=== PATIENT | male | born 1940 | race Caucasian/White ===

== ENCOUNTER 2019-04-17 07:37 | Day surgery (SDC) | payer MEDICARE, BC ==
[2019-04-16 12:45] LABS: BASOPHILS % (AUTO) 0.6 % (0-1); EOSINOPHILS % (AUTO) 0.4 % (0-6); HEMATOCRIT 40.9 % (42.0-52.0); HEMOGLOBIN 14.1 g/dl (14.0-17.9); LYMPHOCYTES # (AUTO) 1.4 X10'3 (1.1-4.8); LYMPHOCYTES % (AUTO) 17.4 % (21-51); MEAN CORPUSCULAR HEMOGLOBIN 32.8 PG (27.0-31.0); MEAN CORPUSCULAR HGB CONC 34.5 g/dL (33.0-36.5); MEAN CORPUSCULAR VOLUME 95.3 FL (78-98); MEAN PLATELET VOLUME 8.9 FL (7.4-10.4); MONOCYTES # (AUTO) 0.8 X10'3 (0-0.9); MONOCYTES % (AUTO) 9.7 % (2-12); NEUTROPHILS # (AUTO) 5.6 X10'3 (1.8-7.7); NEUTROPHILS % (AUTO) 71.9 % (42-75); PLATELET COUNT 173 X10'3 (140-440); RED BLOOD COUNT 4.29 X10'6 (4.70-6.10); RED CELL DISTRIBUTION WIDTH 14.3 % (11.5-14.5); WHITE BLOOD COUNT 7.8 X10'3 (4.5-11.0)
[2019-04-16 12:54] LABS: ALBUMIN 3.5 G/DL (3.4-5.0); ANION GAP 10 (8-16); BLOOD UREA NITROGEN 20 MG/DL (7-18); BUN/CREATININE RATIO 21.1 (5.4-32.0); CHLORIDE 102 MMOL/L (99-107); CREATININE 0.95 MG/DL (0.60-1.10); GLUCOSE 134 MG/DL (70-104); POTASSIUM 4.5 MMOL/L (3.5-5.1); SODIUM 139 MMOL/L (135-145); TOTAL CARBON DIOXIDE 26.7 MMOL/L (24-32); eGFR 77 ML/MIN
[2019-04-17] VITALS (19 sets, daily range): BP systolic 90–121; BP diastolic 50–69
[~2019-04-17] VITALS: Ht 182.9 cm; Wt 111.9 kg
[2019-04-17] MEDS ORDERED: amiodarone in dextrose, iso-osm 150mg/100ml bag IV ONE (08:10)
[2019-04-17] MEDS ORDERED: diphenhydrAMINE 25mg capsule PO ONE (08:10)
[2019-04-17] MEDS ORDERED: MIDAZolam 5mg/ml 2ml vial IV ONE (08:10)
[2019-04-17] MEDS ORDERED: atropine 0.1mg/ml 10ml syringe IV ONE (08:10)
[2019-04-17] MEDS ORDERED: LORazepam 0.5 MG tablet PO ONE (08:10)
[2019-04-17] MEDS ORDERED: morphine 10mg/ml inj. IV ONE (08:10)
[2019-04-17] MEDS ORDERED: normal saline 1000ml 1,000 ML IV SCH (08:10)
[2019-04-17] MEDS ORDERED: INSU100V9 SQ (08:18)
[2019-04-17] MEDS ORDERED: PRAZ5CAP2 PO (08:18)
[2019-04-17] MEDS ORDERED: ATOR40TA PO (08:18)
[2019-04-17] MEDS ORDERED: SITA1TAB6 PO (08:18)
[2019-04-17] MEDS ORDERED: FURO-150 PO (08:18)
[2019-04-17] MEDS ORDERED: HYDR25TA4 PO (08:18)
[2019-04-17] MEDS ORDERED: POTA20TA10 PO (08:18)
[2019-04-17] MEDS ORDERED: AMLO1CAP10 PO (08:18)
[2019-04-17] MEDS ORDERED: FINA5TAB11 PO (08:18)
[2019-04-17] MEDS ORDERED: APIX5TAB3 PO (08:18)
[2019-04-17] MEDS ORDERED: FLU VACC QS2019-20 36MOS UP/PF 60 MCG/0.5 ML SYRINGE IMVAC ONE (10:10)
== END 2019-04-17 12:30 | disposition home or self-care (01) ==
LOC: SSTAY O 07:37
PROVIDERS: ATTEND Internal Medicine Cardiovascular Disease
DX: I48.19 Other persistent atrial fibrillation (principal); I10 Essential (primary) hypertension; E78.5 Hyperlipidemia, unspecified; Z23 Encounter for immunization; G47.33 Obstructive sleep apnea (adult) (pediatric); E11.9 Type 2 diabetes mellitus without complications; Z79.899 Other long term (current) drug therapy; Z79.4 Long term (current) use of insulin; Z82.49 Family history of ischemic heart disease and other diseases of the circulatory system
CPT/HCPCS: 36415; 80048; 82948; 85025; 85610; 92960; 93005; 93312; G0008; J0282; J0461; J2250; J2270; J7030; Q0163; Q2037

== ENCOUNTER 2021-06-16 15:41 | Inpatient (IN) | payer MEDICARE, BC ==
[~2021-06-16] VITALS: Ht 182.9 cm; Wt 100.3 kg
[~2021-06-16 15:41] MED LIST: AMLO1CAP10 PO; APIX5TAB3 PO; ATOR40TA PO; FINA5TAB11 PO; FURO-150 PO; HYDR25TA4 PO; INSU100V9 SQ; POTA-197 PO; PRAZ5CAP2 PO; SITA1TAB6 PO
[2021-06-16 16:22] LABS: BASOPHILS # (AUTO) 0.1 X10'3 (0-0.2); BASOPHILS % (AUTO) 0.8 % (0-1); EOSINOPHILS # (AUTO) 0.1 X10'3 (0-0.9); EOSINOPHILS % (AUTO) 0.6 % (0-6); HEMATOCRIT 40.4 % (42.0-52.0); HEMOGLOBIN 13.4 g/dl (14.0-17.9); LYMPHOCYTES # (AUTO) 1.5 X10'3 (1.1-4.8); LYMPHOCYTES % (AUTO) 16.5 % (21-51); MEAN CORPUSCULAR HEMOGLOBIN 30.9 PG (27.0-31.0); MEAN CORPUSCULAR HGB CONC 33.2 g/dL (33.0-36.5); MEAN CORPUSCULAR VOLUME 92.9 FL (78-98); MEAN PLATELET VOLUME 7.8 FL (7.4-10.4); MONOCYTES # (AUTO) 0.7 X10'3 (0-0.9); MONOCYTES % (AUTO) 7.5 % (2-12); NEUTROPHILS # (AUTO) 6.9 X10'3 (1.8-7.7); NEUTROPHILS % (AUTO) 74.6 % (42-75); PLATELET COUNT 322 X10'3 (140-440); RED BLOOD COUNT 4.35 X10'6 (4.70-6.10); RED CELL DISTRIBUTION WIDTH 14.5 % (11.5-14.5); WHITE BLOOD COUNT 9.3 X10'3 (4.5-11.0)
--- NOTE | 2021-06-16 16:35 | NUR ---
Pt placed in room 9.
[2021-06-16 16:36] LABS: ALANINE AMINOTRANSFERASE 26 U/L (12-78); ALBUMIN 3.7 G/DL (3.4-5.0); ALBUMIN/GLOBULIN RATIO 0.7 (1.1-1.5); ALKALINE PHOSPHATASE 114 IU/L (46-116); ANION GAP 13 (8-16); ASPARTATE AMINO TRANSFERASE 18 U/L (10-37); BILIRUBIN,TOTAL 0.4 MG/DL (0.1-1.0); BLOOD UREA NITROGEN 22 MG/DL (7-18); BUN/CREATININE RATIO 18.3 (5.4-32.0); CALCIUM 10.4 MG/DL (8.5-10.1); CHLORIDE 100 MMOL/L (99-107); GLUCOSE 175 MG/DL (70-104); POTASSIUM 4.8 MMOL/L (3.5-5.1); SODIUM 138 MMOL/L (135-145); TOTAL CARBON DIOXIDE 25.3 MMOL/L (24-32); TOTAL PROTEIN 8.8 G/DL (6.4-8.2); eGFR 59 ML/MIN
--- NOTE | 2021-06-16 16:40 | NUR ---
Pt has a 2cm x 3 cm ulcer on lateral R foot at the base of of 5th toe.
--- NOTE | 2021-06-16 16:45 | NUR ---
To CT/MRI.
[2021-06-16] MEDS ORDERED: magnesium 4gm in 100ml NS 100 ML IV PRN (17:00)
[2021-06-16] MEDS ORDERED: potassium Cl 20 mEq SR tablet PO PRN ×2 (17:00)
[2021-06-16] MEDS ORDERED: HYDROmorphone/PF 0.2 MG/ML SYRINGE IV PRN (17:00)
[2021-06-16] MEDS ORDERED: HYDROmorphone inj. 0.5 MG/0.5 ML DISP.SYRIN IV PRN (17:00)
[2021-06-16] MEDS ORDERED: ondansetron/PF 4mg/2ml inj IV PRN (17:00)
[2021-06-16] MEDS ORDERED: potassium CL 10mEq/100ml bag 100 ML IV PRN (17:00)
[2021-06-16] MEDS ORDERED: acetaminophen 325mg tablet PO PRN ×2 (17:00)
[2021-06-16] MEDS ORDERED: magnesium 2GM in 50ml NS 50 ML IV PRN (17:00)
[2021-06-16] MEDS ORDERED: magnesium hydroxide 30ml (MOM) UD suspension PO PRN (17:00)
[2021-06-16] MEDS ORDERED: mag hydrox/Alum hydrox/simeth 30ml oral suspension PO PRN (17:00)
[2021-06-16] MEDS ORDERED: HYDROcodone/acetaminophen 5mg/325mg tablet PO PRN (17:00)
[2021-06-16] MEDS ORDERED: magnesium Cl slow-release 64mg tablet PO PRN (17:00)
[2021-06-16] MEDS ORDERED: ondansetron 4mg rapidly disintigrating tab PO PRN (17:00)
[2021-06-16] MEDS ORDERED: bisacodyl 10mg suppository rectal RC PRN (17:00)
[2021-06-16] MEDS ORDERED: dextrose 50%-water 50ml dispensing syringe IV PRN ×2 (17:45)
[2021-06-16] MEDS ORDERED: insulin Lispro (HumaLOG) vial - multi-dose SQ SCH (17:45)
[2021-06-16] MEDS ORDERED: MESSAGE TO PHARMACY PO ONE (17:45)
[2021-06-16] MEDS ORDERED: glucagon, human recombinant 1mg kit SUBCUT PRN (17:45)
[2021-06-16] MEDS ORDERED: dextrose ORAL solution 15 GM/59 ML bottle PO PRN ×2 (17:45)
[2021-06-16 18:13] LABS: HEMOGLOBIN A1C 6.3 % (4.5-6.2)
[2021-06-16] MEDS ORDERED: GADOTERATE MEGLUMINE 7.5 MMOL/15 ML VIAL IV ONE (18:25)
[2021-06-16] MEDS: K and/or MAG REPLACEMENT MC SCH (18:58)
[2021-06-16] MEDS: docusate sod 100mg capsule PO SCH (19:28)
[2021-06-16] MEDS: VANCOMYCIN 1GM/200ML IVPB 200 ML IV SCH (19:50)
[2021-06-16] MEDS: normal saline 1000ml 1,000 ML IV SCH (19:52)
[2021-06-16 21:00] VITALS: BP 132/65
[2021-06-16] MEDS ORDERED: temazepam 15mg capsule PO PRN (21:00)
[2021-06-16] MEDS: insulin glargine (Lantus) pen - multi-dose SQ SCH (21:00)
--- NOTE | 2021-06-16 21:00 | NUR ---
Pt. arrived via gurney. assisted to bed and settled in.
[2021-06-17] VITALS (20 sets, daily range): BP systolic 112–143; BP diastolic 52–70
[2021-06-17] MEDS ORDERED: vancomycin/NS 1 GM ADD-VANTAGE 250 ML IV SCH (05:00)
[2021-06-17] MEDS: normal saline 1000ml 1,000 ML IV SCH ×3 (05:42→19:59)
--- NOTE | 2021-06-17 06:18 | NUR ---
Problems reprioritized. Patient report given, questions answered & plan of care reviewed with CRISTY Mayo and CRISTY Cornelius.
[2021-06-17 06:52] LABS: ALANINE AMINOTRANSFERASE 21 U/L (12-78); ALBUMIN 2.9 G/DL (3.4-5.0); ALBUMIN/GLOBULIN RATIO 0.9 (1.1-1.5); ALKALINE PHOSPHATASE 88 IU/L (46-116); ANION GAP 11 (8-16); ASPARTATE AMINO TRANSFERASE 25 U/L (10-37); BASOPHILS % (AUTO) 0.8 % (0-1); BILIRUBIN,TOTAL 0.5 MG/DL (0.1-1.0); BLOOD UREA NITROGEN 17 MG/DL (7-18); BUN/CREATININE RATIO 19.5 (5.4-32.0); CHLORIDE 105 MMOL/L (99-107); CREATININE 0.87 MG/DL (0.60-1.10); EOSINOPHILS # (AUTO) 0.1 X10'3 (0-0.9); EOSINOPHILS % (AUTO) 1.3 % (0-6); GLUCOSE 94 MG/DL (70-104); HEMATOCRIT 34.8 % (42.0-52.0); HEMOGLOBIN 11.6 g/dl (14.0-17.9); LYMPHOCYTES # (AUTO) 1.2 X10'3 (1.1-4.8); LYMPHOCYTES % (AUTO) 22.5 % (21-51); MAGNESIUM 1.9 MG/DL (1.5-2.4); MEAN CORPUSCULAR HEMOGLOBIN 30.6 PG (27.0-31.0); MEAN CORPUSCULAR HGB CONC 33.4 g/dL (33.0-36.5); MEAN CORPUSCULAR VOLUME 91.5 FL (78-98); MEAN PLATELET VOLUME 8.1 FL (7.4-10.4); MONOCYTES # (AUTO) 0.6 X10'3 (0-0.9); MONOCYTES % (AUTO) 10.6 % (2-12); NEUTROPHILS # (AUTO) 3.5 X10'3 (1.8-7.7); NEUTROPHILS % (AUTO) 64.8 % (42-75); PLATELET COUNT 244 X10'3 (140-440); POTASSIUM 4.7 MMOL/L (3.5-5.1); RED CELL DISTRIBUTION WIDTH 14.6 % (11.5-14.5); SODIUM 140 MMOL/L (135-145); TOTAL CARBON DIOXIDE 23.6 MMOL/L (24-32); TOTAL PROTEIN 6.3 G/DL (6.4-8.2); WHITE BLOOD COUNT 5.4 X10'3 (4.5-11.0); eGFR 85 ML/MIN
--- NOTE | 2021-06-17 07:04 | NUR ---
Patient in room [facility]. I have received report from Malka and had the opportunity to ask questions and assume patient care.
[2021-06-17] MEDS: K and/or MAG REPLACEMENT MC SCH ×2 (07:56→20:00)
[2021-06-17] MEDS: VANCOMYCIN 1GM/200ML IVPB 200 ML IV SCH ×2 (08:11→19:58)
[2021-06-17] MEDS: docusate sod 100mg capsule PO SCH ×2 (08:15→20:04)
--- NOTE | 2021-06-17 11:56 | NUR ---
PT MOVED TO ROOM 355 B with all belongings
[2021-06-17] MEDS ORDERED: ondansetron/PF 4mg/2ml inj IV PRN ×2 (13:25→16:55)
[2021-06-17] MEDS ORDERED: morphine 2 MG/ML inj. syringe IV PRN ×2 (13:25→16:55)
[2021-06-17] MEDS ORDERED: ringers solution, lacted 1,000 ML IV SCH (13:25)
[2021-06-17] MEDS ORDERED: meperidine/PF 25mg/ml syringe IV PRN ×6 (13:25→16:55)
[2021-06-17] MEDS ORDERED: proCHLORperazine 10 MG/2 ml inj IV PRN ×2 (13:25→16:55)
[2021-06-17] MEDS ORDERED: morphine 4 MG/ML inj SYRINge IV PRN ×2 (13:25→16:55)
[2021-06-17] MEDS ORDERED: AMLO10TA13 PO (14:23)
[2021-06-17] MEDS ORDERED: HYDR12.55 PO (14:23)
[2021-06-17] MEDS ORDERED: INSU100I31 SUBCUT (14:23)
[2021-06-17] MEDS ORDERED: AMIO200T27 PO (14:23)
[2021-06-17] MEDS ORDERED: SULF1TAB45 PO (14:35)
[2021-06-17] MEDS ORDERED: TRAM50TA2 PO (14:35)
[2021-06-17] MEDS ORDERED: CEPH-585 PO (14:35)
[2021-06-17] MEDS ORDERED: fentaNYL/PF 50MCG/1 ML 2ML syringe ONE (15:28)
[2021-06-17] MEDS ORDERED: midazolam 1 mg/ML 2ml injection ONE (15:28)
[2021-06-17] MEDS ORDERED: ceFAZolin 1000mg inj ONE ×2 (15:42)
[2021-06-17] MEDS ORDERED: bacitracin 15gm ointment TP ONE (15:51)
[2021-06-17] MEDS ORDERED: povidone-iodine 10% ointment 1 APPLIC APPLIC TP ONE (16:00)
[2021-06-17] MEDS ORDERED: HYDROcodone/acetaminophen 10/325mg tab PO PRN (16:10)
--- NOTE | 2021-06-17 16:10 | NUR ---
PT ARRIVED TO [facility]OVERY VIA BED, REPORT GIVEN BY DR. SWENSON, PT WAKING UP, VSS, DENIES PAIN, PIV 20G TO RIGHT A/C-LR AT 100ML HR, RIGHT FOOT DRESSING-CDI, DORSAL PEDALIS PULSE NOTED WITH DOPPLER.
[2021-06-17] MEDS ORDERED: propofol inj 20 ML IV ONE (16:14)
--- NOTE | 2021-06-17 17:00 | NUR ---
received report from PACU, pt arrived to floor sleepy but oriented. Iv fluids running as ordered, no reports of discomfort post op vitals started adn stable
--- NOTE | 2021-06-17 17:20 | NUR ---
PT AWAKE, VSS, PAIN BETTER AFTER IV MEDS GIVEN-08/22, NO CHANGES IN FOOT DRSG, PULSES PRESENT BILATERALLY WITH DOPPLER, RIGHT FOOT/LEG EDEMATOUS-+2, ELEVATED ON PILLOW, PIV 20G TO RIGHT A/C, REPORT CALLED TO ALBERTO RN-ALL QUESTIONS ANSWERED, PT RETURNED TO ROOM 355, BED LOW AND LOCKED, CALL LIGHT IN REACH, RN IN TO RECEIVE PT.
--- NOTE | 2021-06-17 18:43 | NUR ---
Problems reprioritized. Patient report given, questions answered & plan of care reviewed with Federica Stallworth.
--- NOTE | 2021-06-17 18:45 | NUR ---
Patient in room [facility]. I have received report from YOEL MUNIZ AND LAILA MUNIZ and had the opportunity to ask questions and assume patient care.
[2021-06-17] MEDS: apixaban 5mg tablet PO SCH (20:04)
[2021-06-17] MEDS: insulin glargine (Lantus) pen - multi-dose SQ SCH (22:22)
[2021-06-17] MEDS: HYDROcodone/acetaminophen 10/325mg tab PO PRN (23:46)
[2021-06-17] MEDS: ceFAZolin inj. 1,000 MG in dextrose 5%-water 50ml 50 ML IV SCH (23:49)
[2021-06-18] VITALS: BP 135/64
--- NOTE | 2021-06-18 06:00 | NUR ---
Patient in room [facility]. I have received report from Federica Stallworth and had the opportunity to ask questions and assume patient care.
[2021-06-18] MEDS ORDERED: VANCOMYCIN LEVEL IV ONE (06:30)
[2021-06-18 07:00] VITALS: BP 137/67
[2021-06-18 07:23] LABS: BASOPHILS % (AUTO) 0.1 % (0-1); EOSINOPHILS % (AUTO) 0 % (0-6); HEMOGLOBIN 12.6 g/dl (14.0-17.9); LYMPHOCYTES # (AUTO) 0.5 X10'3 (1.1-4.8); LYMPHOCYTES % (AUTO) 9.2 % (21-51); MEAN CORPUSCULAR HEMOGLOBIN 30.5 PG (27.0-31.0); MEAN CORPUSCULAR HGB CONC 33.1 g/dL (33.0-36.5); MEAN CORPUSCULAR VOLUME 92.1 FL (78-98); MEAN PLATELET VOLUME 8.1 FL (7.4-10.4); MONOCYTES # (AUTO) 0.2 X10'3 (0-0.9); MONOCYTES % (AUTO) 3.5 % (2-12); NEUTROPHILS # (AUTO) 4.9 X10'3 (1.8-7.7); NEUTROPHILS % (AUTO) 87.2 % (42-75); PLATELET COUNT 245 X10'3 (140-440); RED BLOOD COUNT 4.13 X10'6 (4.70-6.10); RED CELL DISTRIBUTION WIDTH 14.1 % (11.5-14.5); WHITE BLOOD COUNT 5.6 X10'3 (4.5-11.0)
[2021-06-18] MEDS: VANCOMYCIN 1GM/200ML IVPB 200 ML IV SCH (07:39)
[2021-06-18] MEDS: docusate sod 100mg capsule PO SCH (07:40)
[2021-06-18] MEDS: apixaban 5mg tablet PO SCH (07:40)
[2021-06-18] MEDS: HYDROcodone/acetaminophen 10/325mg tab PO PRN (07:41)
[2021-06-18 07:42] LABS: ALANINE AMINOTRANSFERASE 21 U/L (12-78); ALBUMIN 2.9 G/DL (3.4-5.0); ALBUMIN/GLOBULIN RATIO 0.8 (1.1-1.5); ALKALINE PHOSPHATASE 93 IU/L (46-116); ANION GAP 11 (8-16); ASPARTATE AMINO TRANSFERASE 20 U/L (10-37); BILIRUBIN,TOTAL 0.3 MG/DL (0.1-1.0); BLOOD UREA NITROGEN 13 MG/DL (7-18); CALCIUM 9.2 MG/DL (8.5-10.1); CHLORIDE 104 MMOL/L (99-107); CREATININE 0.81 MG/DL (0.60-1.10); GLUCOSE 160 MG/DL (70-104); POTASSIUM 5.2 MMOL/L (3.5-5.1); SODIUM 139 MMOL/L (135-145); TOTAL CARBON DIOXIDE 24.4 MMOL/L (24-32); TOTAL PROTEIN 6.6 G/DL (6.4-8.2); eGFR > 90 ML/MIN
[2021-06-18 07:44] LABS: MAGNESIUM 1.9 MG/DL (1.5-2.4); VANCOMYCIN,TROUGH 14.5 UG/ML (6.0-14.0)
[2021-06-18 07:46] VITALS: BP_SYST 137
[2021-06-18] MEDS ORDERED: HYDROchlorothiazide 12.5mg capsule PO SCH (08:00)
[2021-06-18] MEDS ORDERED: furosemide 20MG tablet PO SCH (08:00)
[2021-06-18] MEDS ORDERED: amLODIPine 5mg tablet PO SCH (08:00)
[2021-06-18] MEDS ORDERED: finasteride 5mg tablet PO SCH (08:00)
[2021-06-18] MEDS ORDERED: atorvastatin 20mg tablet PO SCH (08:00)
[2021-06-18] MEDS: K and/or MAG REPLACEMENT MC SCH (08:00)
[2021-06-18] MEDS ORDERED: amiodarone 200mg tablet PO SCH (08:00)
[2021-06-18] MEDS: ceFAZolin inj. 1,000 MG in dextrose 5%-water 50ml 50 ML IV SCH (10:20)
[2021-06-18] MEDS ORDERED: AMOX-422 PO ×2 (11:50)
[2021-06-18] MEDS ORDERED: HYDR-3972 PO (11:50)
--- NOTE | 2021-06-18 14:00 | NUR ---
Pt dicharged via wheelchair with staff assistance and . PIV discontinued, Sent with [facility] and all dicharge instructions and written Hydrocodone prescription
[2021-06-18] MEDS ORDERED: VANCOmycin 1250MG/NS 250ml Bag 250 ML IV SCH (19:00)
[2021-06-20] MEDS ORDERED: VANCOMYCIN LEVEL IV ONE (06:30)
== END 2021-06-18 13:50 | disposition home or self-care (01) | DRG 617 ==
LOC: ER 15:42 → ED HOLD 17:03 → SUR 3N 20:45
PROVIDERS: ADMIT Family Medicine; ATTEND Family Medicine
PROC: 0Y6X0Z1 Detachment at Right 5th Toe, High, Open Approach (ICD-10-PCS; principal; 2021-06-17 15:10)
DX: E11.69 Type 2 diabetes mellitus with other specified complication (principal); M86.8X7 Other osteomyelitis, ankle and foot; M00.9 Pyogenic arthritis, unspecified; N17.0 Acute kidney failure with tubular necrosis; E11.621 Type 2 diabetes mellitus with foot ulcer; E11.40 Type 2 diabetes mellitus with diabetic neuropathy, unspecified; I10 Essential (primary) hypertension; Z20.822 Contact with and (suspected) exposure to COVID-19; I48.91 Unspecified atrial fibrillation; E78.00 Pure hypercholesterolemia, unspecified; E78.5 Hyperlipidemia, unspecified; L08.9 Local infection of the skin and subcutaneous tissue, unspecified; L97.519 Non-pressure chronic ulcer of other part of right foot with unspecified severity; Z96.661 Presence of right artificial ankle joint; G47.30 Sleep apnea, unspecified; Z85.828 Personal history of other malignant neoplasm of skin; Z79.899 Other long term (current) drug therapy; Z79.4 Long term (current) use of insulin
CPT/HCPCS: 36415; 71045; 73700; 73720; 80053; 80202; 82948; 83036; 83605; 83735; 84145; 85025; 85610; 86885; 86900; 86901; 87040; 87070; 87075; 87076; 87077; 87081; 87185; 87186; 87635; 88305; 88311; 93005; 97116; 97161; 97530; 99285; A4618; A6222; A6223; A6253; A6449; A7000; A9575; C9803; G0378; J0690; J1815; J2175; J2250; J2270; J2704; J3010; J3370; J7030; J7060; J7120

== ENCOUNTER 2021-09-30 12:10 | Day surgery (SDC) | payer MEDICARE, BC ==
[~2021-09-30] VITALS: Ht 182.9 cm; Wt 99.0 kg
[2021-09-30] VITALS (13 sets, daily range): BP systolic 110–140; BP diastolic 58–73
[~2021-09-30 12:10] MED LIST changes: +AMIO200T27 PO; +AMLO10TA13 PO; -AMLO1CAP10 PO; +HYDR-3972 PO; +HYDR12.55 PO; -HYDR25TA4 PO; +INSU100I31 SUBCUT; -INSU100V9 SQ; -POTA-197 PO; -PRAZ5CAP2 PO
[2021-09-30 14:06] LABS: BASOPHILS % (AUTO) 0.5 % (0-1); EOSINOPHILS % (AUTO) 0.4 % (0-6); LYMPHOCYTES # (AUTO) 1.2 X10'3 (1.1-4.8); LYMPHOCYTES % (AUTO) 16.5 % (21-51); MEAN CORPUSCULAR HEMOGLOBIN 28.8 PG (27.0-31.0); MEAN CORPUSCULAR HGB CONC 32.7 g/dL (33.0-36.5); MEAN CORPUSCULAR VOLUME 88.1 FL (78-98); MEAN PLATELET VOLUME 8.2 FL (7.4-10.4); MONOCYTES # (AUTO) 0.6 X10'3 (0-0.9); MONOCYTES % (AUTO) 8.6 % (2-12); NEUTROPHILS # (AUTO) 5.4 X10'3 (1.8-7.7); PRE OP HEMATOCRIT 38.3 % (42.0-52.0); PRE OP HEMOGLOBIN 12.5 g/dL (14.0-17.9); PRE OP PLATELET COUNT 177 X10'3 (140-440); RED BLOOD COUNT 4.35 X10'6 (4.70-6.10); RED CELL DISTRIBUTION WIDTH 15.4 % (11.5-14.5)
[2021-09-30 14:19] LABS: ALBUMIN 3.2 G/DL (3.4-5.0); ALBUMIN/GLOBULIN RATIO 0.8 (1.1-1.5); ALKALINE PHOSPHATASE 90 IU/L (46-116); BLOOD UREA NITROGEN 16 MG/DL (7-18); BUN/CREATININE RATIO 19.5 (5.4-32.0); CALCIUM 9.5 MG/DL (8.5-10.1); CHLORIDE 104 MMOL/L (99-107); CREATININE 0.82 MG/DL (0.60-1.10); PRE OP ALT 15 U/L (30-65); PRE OP ANION GAP 8 (8-16); PRE OP AST 14 U/L (10-37); PRE OP BILIRUB, TOTAL 0.6 MG/DL (0.0-1.0); PRE OP GLUCOSE 95 MG/DL (70-104); PRE OP INR 1.1 INR; PRE OP POTASSIUM 3.9 MMOL/L (3.4-5.1); PRE OP PROTIME 11.7 SECONDS (9.0-12.0); PRE OP SODIUM 140 MMOL/L (135-145); TOTAL CARBON DIOXIDE 28.5 MMOL/L (24-32); TOTAL PROTEIN 7.2 G/DL (6.4-8.2); eGFR > 90 ML/MIN
[2021-09-30] MEDS ORDERED: enalaprilat dihydrate 2.5mg/2ml vial IV PRN (14:50)
[2021-09-30] MEDS ORDERED: morphine 2 MG/ML inj. syringe IV PRN (14:50)
[2021-09-30] MEDS ORDERED: morphine 4 MG/ML inj SYRINge IV PRN (14:50)
[2021-09-30] MEDS ORDERED: fentaNYL/PF 50MCG/1 ML 2ML syringe IV PRN ×2 (14:50)
[2021-09-30] MEDS ORDERED: hydrALAZINE 20mg/ml inj. IV PRN (14:50)
[2021-09-30] MEDS ORDERED: ringers solution, lacted 1,000 ML IV SCH (14:50)
[2021-09-30] MEDS ORDERED: ondansetron/PF 4mg/2ml inj IV PRN (14:50)
[2021-09-30] MEDS ORDERED: fentaNYL/PF 50MCG/1 ML 2ML syringe ONE (14:54)
[2021-09-30] MEDS ORDERED: midazolam 1 mg/ML 2ml injection ONE (14:55)
[2021-09-30] MEDS ORDERED: propofol inj 20 ML IV ONE (14:56)
[2021-09-30] MEDS ORDERED: LIDOcaine 1%/PF 5ML 10 MG/ML VIAL ONE (14:56)
[2021-09-30] MEDS ORDERED: ondansetron/PF 4mg/2ml inj ONE (14:56)
--- NOTE | 2021-09-30 17:08 | NUR ---
16:45 PTS BS WAS 62, PT ASYMPTOMATIC, JUICE AND JELLO GIVEN, REPEAT BS 70, PT GIVEN 2ND JELLO, WILL REPEAT BS AFTER 15 MINUTES. Addendum: 09/30/21 at 1710 by Magnolia Abarca RN Amended: Links added.
--- NOTE | 2021-09-30 17:30 | NUR ---
PTS REPEAT BS WAS 69, PT REMAINS ASYMPTOMATIC, CALL INTO DR ONEILL AND UPDATED, ORDERS RECEIVED THAT ITS OKAY TO SEND PT HOME IF HE REMAINS ASYMPTOMATIC. Addendum: 09/30/21 at 1915 by Magnolia Abarca RN Amended: Links added.
--- NOTE | 2021-09-30 18:59 | NUR ---
PT REMAINS ASYMPTOMATIC, PT WAS ABLE TO VOID, DENIES PAIN. WOUND VAC REMAINS W/VERY LITTLE DRAINAGE, EXTRA CANISTERS ARE NOT AVAILABLE, DR GUADALUPE AWARE. D/C INSTRUCTIONS GIVEN AND GONE OVER W/PT AND PTS WHO VERBALIZED UNDERSTANDING. PT WAS ABLE TO PIVOT W/WALKER TO W/C W/O DIFFICULTY. PT D/CD TO HOME VIA W/C TO PRIVATE VEHICLE W/O INCIDENT. Addendum: 09/30/21 at 1914 by Magnolia Abarca RN Amended: Links added.
[2021-10-01] MEDS ORDERED: ringers solution, lacted 1,000 ML IV SCH (05:00)
[2021-10-01] MEDS ORDERED: ceFAZolin inj. 2,000 MG in dextrose 5%-water 100 ML IV ONE (05:30)
[2021-10-01] MEDS ORDERED: vancomycin 1,500 MG in NS 300ml IV soln IV ONE (05:30)
[2021-10-01] MEDS ORDERED: famotidine 20mg tablet PO ONE (05:30)
== END 2021-09-30 18:59 | disposition home or self-care (01) ==
LOC: PAS 12:10
PROVIDERS: ATTEND Podiatrist Foot & Ankle Surgery
DX: T81.89XA Other complications of procedures, not elsewhere classified, initial encounter (principal); E11.69 Type 2 diabetes mellitus with other specified complication; M86.8X7 Other osteomyelitis, ankle and foot; E11.621 Type 2 diabetes mellitus with foot ulcer; L97.519 Non-pressure chronic ulcer of other part of right foot with unspecified severity; G47.30 Sleep apnea, unspecified; I10 Essential (primary) hypertension; I48.91 Unspecified atrial fibrillation; E11.40 Type 2 diabetes mellitus with diabetic neuropathy, unspecified; M19.90 Unspecified osteoarthritis, unspecified site; Z79.01 Long term (current) use of anticoagulants; Z79.4 Long term (current) use of insulin; Z79.899 Other long term (current) drug therapy; Z98.890 Other specified postprocedural states; Y83.8 Other surgical procedures as the cause of abnormal reaction of the patient, or of later complication, without mention of misadventure at the time of the procedure; Y92.89 Other specified places as the place of occurrence of the external cause
CPT/HCPCS: 28122; 36415; 80053; 82948; 85025; 85610; 85730; 87070; 87075; 87102; 97605; J2250; J2405; J2704; J3010; J3370; J3490; J7030; J7040; J7120; Z7506; Z7508; Z7512; A4618; A6449; A6550; A7000; J0690; J7060